=== PATIENT | female | born 1955 | race Caucasian/White ===

== ENCOUNTER 2017-01-21 06:32 | Day surgery (SDC) | payer BC ==
[2017-01-20 16:35] LABS: CALCIUM, SERUM 8.7 MG/DL (8.5-10.4); CHLORIDE, SERUM 111 MMOL/L (96-112); CO2 (CARBON DIOXIDE) 25 MMOL/L (24-34); GFR AFRICAN AMERICAN 23 ML/MIN (>=60); GFR NON AFRICAN AMERICAN 20 ML/MIN (>=60); GLUCOSE, SERUM 105 MG/DL (60-99); POTASSIUM, SERUM 4.4 MMOL/L (3.5-5.3); SODIUM, SERUM 143 MMOL/L (135-148)
[2017-01-20 16:36] LABS: BUN (BLOOD UREA NITROGEN) 16 MG/DL (6-23); CREATININE 2.51 MG/DL (0.55-1.02)
--- NOTE | ~2017-01-21 | OP ---
Record Of Operation [facility] [address] [place]. [address] NAME: LOU ELDER : 51 STATUS : REG [facility] PAT#: [id number] AGE: 61 ADM/REG DATE : 01/21/17 MR#: [id number] REPORT SERV DATE: 01/21/17 DICTATED BY: PRANAY MISHRA DATE: 01/21/17 REPORT STATUS : Draft TRANSCRIBED BY: MODDasha DATE: 01/21/17 DATE OF PROCEDURE: 01/21/2017 PREOPERATIVE DIAGNOSIS: 1. Phlebosclerosis. 2. Extensive endometrial cancer. POSTOPERATIVE DIAGNOSES: 1. Phlebosclerosis. 2. Extensive endometrial cancer. PROCEDURE: Insertion of right internal jugular central venous catheter with attached tunneled infraclavicular subcutaneous port. RESIDENT SURGEON: Yanira Kumar MD ANESTHESIA: Local with MAC. PROCEDURE: The patient arrived in the operating suite and placed on the table in supine position. Intravenous sedation was administered. The right neck was imaged with ultrasound showing a prominent right internal jugular vein with a posterior medial carotid artery between the heads of the right sternocleidomastoid muscle. The neck and upper chest were then prepped and draped in a sterile manner. 1% lidocaine was infiltrated overlying where the jugular vein had been located low in the neck between the heads of the SCM. It was anesthetized, confirmed to return venous blood. A small incision was performed at this site and infraclavicular site was anesthetized as well. A small incision performed, some subcutaneous tissue was excised with cautery. The internal jugular vein was then cannulated and a guidewire inserted. A power port was then secured at two points with 2-0 Prolene in the infraclavicular site and an 8-Tongan catheter tunnel between the two was then introduced through a peel-away catheter into the internal jugular vein and out into the right atrium under fluoroscopic guidance. This was withdrawn to the SVC above the right atrium. The catheter was then trimmed and secured to the port. System was flushed. There was good antegrade and retrograde flow. Heparinized saline was instilled. The previously placed Prolene suture secured. The wounds were closed with subcutaneous 3-0 Vicryl and subcuticular 5-0 Monocryl. Sterile dressing applied. The patient was then taken to PACU, having tolerated the procedure well. There was no pneumothorax and none suspected on completion fluoroscopy. /RADHA Pranay Mishra M.D. / [id number] Record Of [address] [address] NAME: LOU ELDER : 51 STATUS : REG [facility] PAT#: [id number] AGE: 61 ADM/REG DATE : 01/21/17 MR#: [id number] REPORT SERV DATE: 01/21/17 DICTATED BY: PRANAY MISHRA DATE: 01/21/17 REPORT STATUS : Draft TRANSCRIBED BY: RADHA DATE: 01/21/17 CC: Pranay Mishra M.D.
[~2017-01-21 06:32] MED LIST: AMB5 PO; ASAB PO; BACDS PO; CAT1 PO; CELEXA40 MG PO; CIP5 PO; COMP10B PO; CYANO1000T PO; DEX4 PO; ENDOCET1 TAB PO; LEVAQUIN5T PO; MSCONTIN PO; NORCO1 TA2 PO; NORV10 PO; PCET PO; PERCOCET1 TA2 PO; PR25 PO; PRILOSEC40 MG PO; PRIN20 PO; ROCALTROL0.5 MCG PO; SB325 PO; SEPTRA DS1 TAB PO; SODBICAR10 PO; VELCADE IJ; VELCADE IM; VELCADE IV; VITAMIN B-121000 MC1 SL; VITAMIN D31000 UNIT PO; ZOVIRAX400 MG PO; [UNRECOGNIZED DRUG - REMARK]
== END 2017-01-21 16:02 | disposition home or self-care (01) ==
LOC: SDC 06:32
PROVIDERS: Specialist
PROC: 0JH608Z Insertion of Defibrillator Generator into Chest Subcutaneous Tissue and Fascia, Open Approach (ICD-10-PCS; principal; 2017-01-21 08:30)
DX: I87.8 Other specified disorders of veins (principal); C54.1 Malignant neoplasm of endometrium; C90.00 Multiple myeloma not having achieved remission; I12.9 Hypertensive chronic kidney disease with stage 1 through stage 4 chronic kidney disease, or unspecified chronic kidney disease; N18.9 Chronic kidney disease, unspecified; Z88.5 Allergy status to narcotic agent; Z79.899 Other long term (current) drug therapy
CPT/HCPCS: 36415; 71010; 77001; 80048; 85014; 85018; 93005; C1751; J0690; J2250; J2405; J3010